=== PATIENT | female | born 1980 | race Caucasian/White ===

== ENCOUNTER 2024-05-30 08:56 | Oncology outpatient (recurring) (ONCR) | payer MEDICARE, MEDICAID, SELFPAY ==
[2024-05-30 10:24] LABS: Basophils # 0.1 10^3/uL (0.0-0.1); Eosinophils # 0.2 10^3/uL (0.0-0.8); Eosinophils % 1.9 %; Hematocrit 49.7 % (36-47); Lymphocytes # 3.3 10^3/uL (0.8-4.8); Lymphocytes % 38.8 %; Mean Corpuscular Hemoglobin 34.2 pg (27-33); Mean Corpuscular Volume 110.4 fl (85-98); Mean Platelet Volume 9.6 fL (7.4-10.4); Monocytes # 0.5 10^3/uL (0.2-0.9); Monocytes % 6.3 %; Neutrophils # 4.34 10^3/uL (1.8-7.7); Neutrophils % 51.6 %; Nucleated Red Blood Cells % 0 %; Platelet Count 207 10^3/cmm (157-399)
[2024-05-30 10:55] LABS: Albumin Level 3.7 g/dL (3.5-5.2); Alkaline Phosphatase 79 U/L (35-105); Blood Urea Nitrogen 9 mg/dL (6-20); Calcium 8.7 mg/dL (8.5-10.5); Carbon Dioxide 21 mmol/L (22-29); Chloride 104 mmol/L (98-107); Creatinine Clr Calc Pharmacy 108.6218; Globulin 3.3 g/dL (1.3-4.6); Glomerular Filtration Rate 109.1 mL/min (90-130); Glucose 124 mg/dL (65-115); Osmolality Calculated 288 mOsm/kg (285-295); Sodium 139 mmol/L (136-145); Thyroid Stimulating Hormone 3.34 uIU/mL (0.27-4.20); Total Bilirubin 0.2 mg/dL (0.15-1.2)
[2024-05-30 10:58] LABS: Alanine Aminotransferase 17 U/L (0-33); Anion Gap 17.6 (5-19); Aspartate Amino Transferase 18 U/L (0-32); Potassium 3.6 mmol/L (3.5-5.1)
[2024-05-31 11:05] LABS: Vitamin B12 244 pg/mL (232-1245)
== END 2024-06-10 23:59 | disposition home or self-care (01) ==
PROVIDERS: PCP Family Medicine; Visit Provider Internal Medicine Medical Oncology
DX: C50.811 Malignant neoplasm of overlapping sites of right female breast (principal); Z17.0 Estrogen receptor positive status [ER+]; R53.83 Other fatigue; D75.89 Other specified diseases of blood and blood-forming organs; F17.210 Nicotine dependence, cigarettes, uncomplicated; Z90.13 Acquired absence of bilateral breasts and nipples; Z79.810 Long term (current) use of selective estrogen receptor modulators (SERMs); F32.A Depression, unspecified; R23.2 Flushing; F41.9 Anxiety disorder, unspecified
CPT/HCPCS: 36415; 80053; 82607; 84443; 85025; 99205

== ENCOUNTER 2024-12-05 13:49 | Oncology outpatient (recurring) (ONCR) | payer MEDICARE, MEDICAID, SELFPAY | END 2024-12-09 23:59 | disposition home or self-care (01) | PROVIDERS: PCP Family Medicine; Visit Provider Internal Medicine | DX: C50.811 Malignant neoplasm of overlapping sites of right female breast (principal); Z17.0 Estrogen receptor positive status [ER+]; Z79.810 Long term (current) use of selective estrogen receptor modulators (SERMs); Z92.21 Personal history of antineoplastic chemotherapy; Z90.13 Acquired absence of bilateral breasts and nipples; Z92.3 Personal history of irradiation | CPT/HCPCS: 99213 ==

== ENCOUNTER 2025-02-12 14:00 | Oncology outpatient (recurring) (ONCR) | payer MEDICARE, MEDICAID, SELFPAY ==
--- NOTE | 2025-02-10 14:30 | US_ITS ---
WS: [id number] ULTRASOUND SOFT TISSUES RIGHT axilla. HISTORY: infiltrating ductal carcinoma of overlapping sites right breast COMPARISON: None available. TECHNIQUE: 2-D and color Doppler imaging is submitted. Ultrasound directed to the RIGHT axilla as directed by the patient. No abnormality is identified by ultrasound. No lymph nodes or soft tissue mass. US/US soft tissue/extremity [id number] IMPRESSION: Negative ultrasound RIGHT axilla.
[2025-02-12 14:48] LABS: Basophils % 0.5 %; Eosinophils # 0.1 10^3/uL (0.0-0.8); Eosinophils % 1.1 %; Hematocrit 42.4 % (36-47); Lymphocytes # 3.5 10^3/uL (0.8-4.8); Lymphocytes % 41.9 %; Mean Platelet Volume 9.5 fL (7.4-10.4); Monocytes # 0.4 10^3/uL (0.2-0.9); Neutrophils # 4.32 10^3/uL (1.8-7.7); Neutrophils % 51.1 %; Nucleated Red Blood Cells % 0 %; Platelet Count 217 10^3/cmm (157-399); Red Blood Count 4.24 10^6/uL (3.85-5.65); Red Cell Distribution Width 12.8 % (12.1-15.1); White Blood Count 8.43 10^3/uL (3.29-11.43)
[2025-02-12 15:04] LABS: Alanine Aminotransferase 13 U/L (0-33); Albumin Level 3.8 g/dL (3.5-5.2); Alkaline Phosphatase 64 U/L (35-105); Anion Gap 17.5 (5-19); Aspartate Amino Transferase 11 U/L (0-32); Blood Urea Nitrogen 9 mg/dL (6-20); Calcium 8.8 mg/dL (8.5-10.5); Carbon Dioxide 23 mmol/L (22-29); Chloride 106 mmol/L (98-107); Globulin 3.3 g/dL (1.3-4.6); Glomerular Filtration Rate 90.9 mL/min (90-130); Glucose 103 mg/dL (65-115); Lactate Dehydrogenase 124 U/L (135-214); Osmolality Calculated 295 mOsm/kg (285-295); Potassium 3.5 mmol/L (3.5-5.1); Sodium 143 mmol/L (136-145); Total Bilirubin 0.2 mg/dL (0.15-1.2); Total Protein 7.1 g/dL (6.6-8.7)
[2025-02-12 16:39] LABS: Slide Review Slide Review Perform
== END 2025-03-10 23:59 | disposition home or self-care (01) ==
PROVIDERS: PCP Nurse Practitioner Family; Visit Provider Internal Medicine
DX: Z53.9 Procedure and treatment not carried out, unspecified reason; C50.811 Malignant neoplasm of overlapping sites of right female breast; Z17.0 Estrogen receptor positive status [ER+]; Z92.21 Personal history of antineoplastic chemotherapy; Z79.810 Long term (current) use of selective estrogen receptor modulators (SERMs); Z90.13 Acquired absence of bilateral breasts and nipples
CPT/HCPCS: 36415; 76882; 80053; 83615; 85025; 99214

== ENCOUNTER → 2025-02-24 15:53 | Outpatient (BNVA) | payer MEDICARE, MEDICAID, SELFPAY | PROVIDERS: PCP Family Medicine; Visit Provider Obstetrics & Gynecology | DX: Z01.419 Encounter for gynecological examination (general) (routine) without abnormal findings (principal) | CPT/HCPCS: 87624 ==

== ENCOUNTER → 2025-03-13 15:18 | Outpatient (BNVA) | payer MEDICARE, MEDICAID, SELFPAY | PROVIDERS: PCP Family Medicine; Visit Provider Obstetrics & Gynecology | DX: R10.2 Pelvic and perineal pain (principal); N88.8 Other specified noninflammatory disorders of cervix uteri; N83.292 Other ovarian cyst, left side | CPT/HCPCS: 76830 ==

== ENCOUNTER 2025-06-17 07:29 | Day surgery (SDC) | payer MEDICARE, MEDICAID, SELFPAY ==
[2025-06-17] VITALS (9 sets, daily range): BP systolic 98–117; BP diastolic 68–89; PULSE 90–105; RESP 16–19; TEMP 36.1–36.6; O2SAT 90–97; BMI 27.1
--- NOTE | 2025-06-17 02:27 | W.PM.OPSFHP ---
Same Day Surgery H&P Indication for Procedure/HPI DATE OF PROCEDURE: June 17, 2025 CHIEF COMPLAINT/INDICATIONFOR SURGICAL PROCEDURE: thickened endometrium on pelvic sono PREOP DIAGNOSIS: thickened endometrium on pelvic sono PLANNED PROCEDURE: Operation Date: 06/17/25 10:55 Proposed Procedures p Hysteroscopy w/ Endometrial Sampling [id number] N83.209(Not Applicable) - Josue Calero MD s Possible Endometrial Poylpectomy(Not Applicable) - Josue Calero MD Medications/Allergies* Home Medications ?Medication ?Instructions ?Recorded ?Confirmed ?Type quetiapine 100 mg tablet 100 mg PO DAILY 05/30/24 06/16/25 History Allergies/Adverse Reactions Allergy/AdvReac Type Severity Reaction Status Date / Time No Known Allergies Allergy Verified 04/14/25 08:06 Pertinent History/Comorbid Conditions* Medical History (Updated 05/11/25 @ 03:01 by Josue Calero MD) Anxiety and depression Breast cancer Numbness and tingling in both hands Surgical History (Updated 03/10/25 @ 21:34 by Josue Calero MD) History of cholecystectomy Ectopic , tubal Tubal and ectopic removal History of removal of ovarian cyst History of bilateral mastectomy (01/13/20) Bilateral mastectomy with right axillary lymph node sampling H/O tubal ligation Family History (Updated 02/24/25 @ 13:52 by Janell Shoemaker CMA) Diabetes Father Cerebral hemorrhage Father Breast cancer Denies family history of Colon cancer Ovarian cancer Heart disease Hyperlipidemia Hypertension Uterine cancer Thyroid disease Stroke Social History Smoking and tobacco/nicotine status: current every day tobacco/nicotine user cigarettes Packs smoked per day: 1 Quit status (tobacco/nicotine): not considering quitting Second hand smoke exposure: Yes Alcohol intake: current Alcohol intake frequency: few times a week Alcohol type: beer Substance/Drug Use: never Pertinent Exam Findings alert, oriented x 3, clear to auscultation bilaterally and regular rate & rhythm Recommendations Surgery/Procedure today Coding Level of Care Code Acute Code for Chg Barbi
--- NOTE | 2025-06-17 08:03 | W.PM.OPSUD ---
Surgery/Procedure H&P Update DATE OF PROCEDURE: June 17, 2025 DATE H&P PERFORMED: 06/16/25 H&P UPDATE INFORMATION: I have reviewed H&P completed within last 30 days, I have examined patient prior to procedure and No changes to prior documentation PREOP DIAGNOSIS: persistent discharge, thickened endometrium PLANNED PROCEDURE: Operation Date: 06/17/25 10:55 Proposed Procedures p Hysteroscopy w/ Endometrial Sampling [id number] N83.209(Not Applicable) - Josue Calero MD s Possible Endometrial Poylpectomy(Not Applicable) - Josue Calero MD
--- NOTE | 2025-06-17 08:07 | ANES.PREANE2 ---
Pre-Anesthetic Assessment Height/Weight: Height 5 ft 2 in Preop Diagnosis: persistent discharge, thickened endometrium Operation Date: 06/17/25 10:55 Proposed Procedures p Hysteroscopy w/ Endometrial Sampling [id number] N83.209(Not Applicable) - Josue Calero MD s Possible Endometrial Poylpectomy(Not Applicable) - Josue Calero MD Was Beta Serenity taken within 24 hours: N/A Was Clonidine taken within 24 hours: N/A Social Tobacco and No alcohol Exam alert, oriented x 3, clear to auscultation bilaterally and regular rate & rhythm Airway Submandibular: within normal limits Cervical ROM: within normal limits Mallampati: Class III Comments: Comments: Very poor dentition, denies any loose Anesthetic Plan ASA status: 2 Anesthesia: General Other: No prior issues with anesthesia NPO since yesterday evening Current smoker, nicotine Denies any cardiac issues GERD, diet controlled Patient states that she cannot give a urine sample, blood hCG test pending Plan for general anesthesia Medications/Allergies Home Medications ?Medication ?Instructions ?Recorded ?Confirmed ?Last Taken ?Type quetiapine 100 mg tablet 100 mg PO DAILY 05/30/24 06/16/25 06/16/25 History tamoxifen 20 mg tablet 20 mg PO BID #60 tabs 06/09/25 06/16/25 06/16/25 Rx Allergies Allergy/AdvReac Type Severity Reaction Status Date / Time No Known Allergies Allergy Verified 04/14/25 08:06 [facility] [place] Anesthesia Medical History (Updated 05/11/25 @ 03:01 by Josue Calero MD) Anxiety and depression Breast cancer Numbness and tingling in both hands Surgical History History of cholecystectomy Ectopic , tubal Tubal and ectopic removal History of removal of ovarian cyst History of bilateral mastectomy (01/13/20) Bilateral mastectomy with right axillary lymph node sampling H/O tubal ligation Family History Father Cerebral hemorrhage Diabetes Other Breast cancer Denies family history of Colon cancer Ovarian cancer Heart disease Hyperlipidemia Hypertension Uterine cancer Thyroid disease Stroke Social History Smoking and tobacco/nicotine status: current every day tobacco/nicotine user cigarettes Packs smoked per day: 1 Quit status (tobacco/nicotine): not considering quitting Second hand smoke exposure: Yes Alcohol intake: current Alcohol intake frequency: few times a week Alcohol type: beer Substance/Drug Use: never
[2025-06-17 08:50] LABS: HCG, Serum Qual Negative (Negative)
--- NOTE | 2025-06-17 10:45 | P.OP_ITS ---
Operative Report Date of procedure: June 17, 2025 Pre-op diagnosis: thickened endometrium Post-op diagnosis: same Post-op findings: normal endometrial cavity No endometrial polyps / fibroids small amount of endometrial tissue multiple endocervical polyps Procedure done: hysteroscopy Curettage of uterus and endocervical canal Implants: none Specimens removed/disposition: endometrial and endocervical curettings Surgeon: Josue Calero MD Anesthesia: MAC Estimated blood loss (mL): 0 Complications: none Findings: see above Condition: stable Disposition: PACU Brief History: 44 y.o. with chronic persistent discharge and thickened endometrium on ultrasound Procedure: Patient was taken to the operating room. Anesthesia was induced. Patient was placed in dorsolithotomy position, prepped and draped for hysteroscopy. A bivalve speculum was placed in the vagina. The anterior lip of the cervix was grasped with a sharp-toothed tenaculum. The cervix was serially dilated with Hegar dilators. . A hysteroscope was placed into the endometrial cavity. The endometrial cavity was seen to be normal. There were no polyps or fibroids. There was a small amount of endometrial tissue. The endocervical canal was seen to have multiple endocervical polyps. The hysteroscope was then removed. Endometrial and endocervical curettage was done with a sharp curette. Endometrial and endocervical tissue was sent to pathology. The sharp-toothed tenaculum was removed. There was no bleeding from the endometrial cavity or c ervix. The patient was then placed supine and awakened and taken to the PACU. Postop condition: stable EBL: none Sponge and instruments counts were normal x 2 Complications: none
--- NOTE | 2025-06-17 11:25 | ANE.PACU2 ---
Inpatient post-anesthesia follow up: Airway intact: Yes Vital signs: Temperature 97.1 F Pulse Rate 94 Respiratory Rate 16 Blood Pressure 101/73 Pulse Oximetry 90 Oxygen Delivery Me thod Room Air Oxygen Flow Rate 8 Fraction of Inspir ed Oxygen Hydration adequate: Yes Nausea and vomiting: No Pain level: 1 Mental status: Baseline
== END 2025-06-17 11:25 | disposition home or self-care (01) ==
PROVIDERS: PCP Family Medicine; Visit Provider Obstetrics & Gynecology
PROC: 0UJD8ZZ Inspection of Uterus and Cervix, Via Natural or Artificial Opening Endoscopic (ICD-10-PCS; CPT 58555; principal; 2025-06-17 10:55)
DX: R93.89 Abnormal findings on diagnostic imaging of other specified body structures (principal); N89.8 Other specified noninflammatory disorders of vagina; Z85.3 Personal history of malignant neoplasm of breast; F41.8 Other specified anxiety disorders; F17.210 Nicotine dependence, cigarettes, uncomplicated; K21.9 Gastro-esophageal reflux disease without esophagitis
CPT/HCPCS: 58558; 36415; 84703; 88305; J0131; J1100; J1200; J1885; J2250; J2405; J2704; J3010; J7030